=== PATIENT | female | born 1970 | race Caucasian/White ===

== ENCOUNTER 2020-03-28 05:42 | Inpatient (IN) | payer MEDICAID ==
[~2020-03-28] VITALS: Ht 180.3 cm; Wt 128.5 kg
[2020-03-28 07:18] LABS: Urine Bacteria NONE SEEN /hpf (None Seen); Urine Blood Negative /uL (Negative); Urine WBC 57 /hpf (0 - 5)
[2020-03-28] MEDS ORDERED: HYDROmorphone HCL 2 MG/ML VL IV ONE ×2 (07:45→10:30)
[2020-03-28] MEDS ORDERED: SODIUM CHLORIDE 0.9% 500 ML IVB ONE (07:45)
[2020-03-28] MEDS ORDERED: SODIUM CHLORIDE 0.9% 1,000 ML IV ONE (07:45)
[2020-03-28] MEDS ORDERED: METOCLOPRAMIDE HCL 5MG/ml INJ 2ml VIAL IV ONE (07:45)
[2020-03-28 08:05] LABS: Basophils # (auto) 0.1 10 ^3/uL (0-0.2); Basophils % (auto) 0.7 % (0.0-2.0); Eosinophils # (auto) 0.1 10 ^3/uL (0-0.8); Eosinophils % (auto) 0.8 % (0.0-7.0); Hematocrit 42.7 % (36.0-46.0); Hemoglobin 14.3 g/dL (12.2-16.2); Lymphocytes # (auto) 2.6 10 ^3/uL (0.4-5.4); Lymphocytes % (auto) 33.4 % (10.0-50.0); Mean Corpuscular Hgb Conc. 33.5 g/dL (32.0-36.0); Mean Corpuscular Volume 89.3 fL (80.0-100.0); Monocytes # (auto) 0.5 10 ^3/uL (0-1.3); Monocytes % (auto) 6.3 % (0.0-12.0); Neutrophils # (auto) 4.5 10 ^3/uL (1.6-8.6); Neutrophils % (auto) 58.8 % (37.0-80.0); Nucleated Red Blood Cells % 0.2 %; Platelet Count (auto) 225 10^3/uL (140-450); Red Blood Cells 4.78 10^6/uL (4.0-5.20); Red Cell Distribution Width 12.5 % (11.8-14.3); White Blood Cell 7.6 10^3/uL (4.4-10.8)
[2020-03-28 08:23] LABS: Albumin 3.7 g/dL (3.4-5.0); Amylase 59 U/L (25-115); Anion Gap 6 (5-15); Blood Urea Nitrogen 13 mg/dL (7-18); Calcium 9.3 mg/dL (8.5-10.1); Carbon Dioxide 26 mmol/L (21-32); Chloride 107 mmol/L (98-107); Glucose 104 mg/dL (74-106); Magnesium 2.2 mg/dL (1.6-2.6); Potassium 3.6 mmol/L (3.5-5.1); Sodium 139 mmol/L (136-145)
[2020-03-28 08:30] LABS: Alanine Aminotransferase 109 U/L (13-56); Alkaline Phosphatase 144 U/L (45-117); Aspartate Aminotransferase 70 U/L (15-37); BUN/Creatinine Ratio 16.7; Bilirubin, Total 0.6 mg/dL (0.2-1.0); GFR African American 101 mL/min; GFR Non-African American 83 mL/min; Lipase 158 U/L (73-393); Total Protein 7.7 g/dL (6.4-8.2)
[2020-03-28] MEDS ORDERED: cefTRIAXone 1GM/50ML D5W 50 ML IV ONE (08:45)
[2020-03-28] MEDS: SODIUM CHLORIDE 0.9% 1,000 ML IV SCH ×2 (11:12→22:26)
[2020-03-28] MEDS: metroNIDAZOLE 500MG/100ML 100 ML IV SCH ×2 (13:28→22:26)
[2020-03-28] MEDS: PROMETHAZINE HCL 25 MG/ML 1ML IV PRN ×2 (14:20→22:27)
[2020-03-28] MEDS ORDERED: LORazepam 2MG/ML-1ML VIAL IV PRN (14:30)
[2020-03-28] MEDS: MORPHINE SULF INJ 2 MG/ML SYRINGE 1ML IV PRN ×3 (14:33→22:27)
--- NOTE | 2020-03-28 15:10 | NUR ---
MS admit from ER DANIELLE ARCINIEGA admitted to tele/MS after SBAR received. Patient oriented to Taty Werner, primary RN, unit, room, bed, and unit policies regarding patient care and visiting hours. Patient weighed by bedscale and encouraged to call if they need something. All questions and concerns addressed, patient verbalized understanding.
[2020-03-28 15:27] VITALS: BP 146/75
[2020-03-28 17:28] VITALS: BP 149/74
--- NOTE | 2020-03-28 18:45 | NUR ---
Pain Patient c/o abdominal pain. Rates it 12/19. 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 Will continue to monitor.
[2020-03-28 22:00] VITALS: BP 155/71
[2020-03-28] MEDS: FAMOTIDINE 20 MG TAB PO SCH (22:26)
[2020-03-29] MEDS: MORPHINE SULF INJ 2 MG/ML SYRINGE 1ML IV PRN ×4 (02:55→21:36)
[2020-03-29 05:00] VITALS: BP 153/84
[2020-03-29] MEDS: metroNIDAZOLE 500MG/100ML 100 ML IV SCH ×3 (06:24→21:57)
[2020-03-29] MEDS: SODIUM CHLORIDE 0.9% 1,000 ML IV SCH (06:25)
[2020-03-29 06:50] LABS: Basophils # (auto) 0.1 10 ^3/uL (0-0.2); Basophils % (auto) 0.6 % (0.0-2.0); Eosinophils # (auto) 0 10 ^3/uL (0-0.8); Eosinophils % (auto) 0.2 % (0.0-7.0); Hemoglobin 15.4 g/dL (12.2-16.2); Lymphocytes # (auto) 2.9 10 ^3/uL (0.4-5.4); Lymphocytes % (auto) 27.6 % (10.0-50.0); Mean Corpuscular Hemoglobin 30.1 pg (28.0-32.0); Mean Corpuscular Hgb Conc. 32.9 g/dL (32.0-36.0); Mean Corpuscular Volume 91.7 fL (80.0-100.0); Monocytes # (auto) 0.7 10 ^3/uL (0-1.3); Monocytes % (auto) 6.2 % (0.0-12.0); Neutrophils % (auto) 65.4 % (37.0-80.0); Nucleated Red Blood Cells % 0.1 %; Platelet Count (auto) 203 10^3/uL (140-450); Red Blood Cells 5.13 10^6/uL (4.0-5.20); Red Cell Distribution Width 12.5 % (11.8-14.3); White Blood Cell 10.7 10^3/uL (4.4-10.8)
[2020-03-29 06:51] LABS: Albumin 3.5 g/dL (3.4-5.0); Calcium 8.9 mg/dL (8.5-10.1); Potassium 3.5 mmol/L (3.5-5.1)
[2020-03-29 06:56] LABS: BUN/Creatinine Ratio 12.7; Bilirubin, Total 0.6 mg/dL (0.2-1.0); Total Protein 7.8 g/dL (6.4-8.2)
[2020-03-29 08:00] VITALS: BP 147/83
[2020-03-29] MEDS: cefTRIAXone 1GM/50ML D5W 50 ML IV SCH (08:30)
[2020-03-29] MEDS: ENOXAPARIN SOD 40 MG/0.4 ML SYRINGE SC SCH (08:31)
[2020-03-29] MEDS: FAMOTIDINE 20 MG TAB PO SCH ×2 (08:31→21:57)
[2020-03-29] MEDS: PROMETHAZINE HCL 25 MG/ML 1ML IV PRN ×2 (08:46→21:58)
[2020-03-29 09:00] VITALS: BP 147/83
--- NOTE | 2020-03-29 11:35 | NUR ---
Dr. Cuong Gonzalez at bedside, updating patient on POC.
[2020-03-29] MEDS ORDERED: LORazepam 2MG/ML-1ML VIAL IV ONE (12:30)
[2020-03-29] MEDS: D5W/LACTATED RINGERS 1,000 ML IV SCH ×2 (12:50→21:45)
[2020-03-29 13:00] VITALS: BP 151/83
[2020-03-29] MEDS ORDERED: NICOTINE 21MG/24 HR TOPICAL PATCH TD ONE (13:15)
[2020-03-29 17:00] VITALS: BP 143/86
--- NOTE | 2020-03-29 18:30 | NUR ---
Patient c/o feeling anxious, will medicate per MD orders.
[2020-03-29] MEDS: LORazepam 2MG/ML-1ML VIAL IV PRN (18:34)
--- NOTE | 2020-03-29 19:37 | NUR ---
Closing Shift note Patient is comfortably resting in bed, breath sounds are even and unlabored, no s/s of distress/sob noted/stated. Bed at lowest locked position and call light within reach. Care endorsed to NOC RN.
--- NOTE | 2020-03-29 19:41 | NUR ---
COVID SWAB COLLECTED AT THIS TIME.
[2020-03-29 22:00] VITALS: BP 126/73
[2020-03-30] MEDS: LORazepam 2MG/ML-1ML VIAL IV PRN (00:54)
[2020-03-30 05:00] VITALS: BP 117/71
[2020-03-30] MEDS: metroNIDAZOLE 500MG/100ML 100 ML IV SCH ×3 (06:16→22:56)
[2020-03-30 07:23] LABS: INR 0.99 (0.9-1.15); Partial Thromboplastin Time 28.3 sec (23.0-31.2)
[2020-03-30] MEDS: D5W/LACTATED RINGERS 1,000 ML IV SCH (07:30)
[2020-03-30 07:34] LABS: Potassium 3.6 mmol/L (3.5-5.1)
[2020-03-30 07:59] LABS: Albumin 3.3 g/dL (3.4-5.0); BUN/Creatinine Ratio 17.2; Bilirubin, Total 0.7 mg/dL (0.2-1.0); Calcium 8.8 mg/dL (8.5-10.1); Total Protein 7.5 g/dL (6.4-8.2)
[2020-03-30 08:00] VITALS: BP 102/63
[2020-03-30 08:30] VITALS: BP 108/63
[2020-03-30] MEDS: NICOTINE 21MG/24 HR TOPICAL PATCH TD SCH (09:12)
[2020-03-30] MEDS: cefTRIAXone 1GM/50ML D5W 50 ML IV SCH (09:12)
--- NOTE | 2020-03-30 09:12 | NUR ---
Patient resting comfortably in bed with no distress noted. Scheduled IV abx given. Patch placed on right shoulder as well. Patient stable.
[2020-03-30] MEDS: ENOXAPARIN SOD 40 MG/0.4 ML SYRINGE SC SCH (09:13)
[2020-03-30] MEDS: MORPHINE SULF INJ 2 MG/ML SYRINGE 1ML IV PRN ×3 (10:46→22:56)
--- NOTE | 2020-03-30 10:46 | NUR ---
Patient medicated for 10/10 abdominal pain. Patient stable at this time.
--- NOTE | 2020-03-30 11:10 | NUR ---
Patient given ativan and then taken via wheelchair for MRCP.
[2020-03-30 12:00] VITALS: BP 106/71
--- NOTE | 2020-03-30 13:05 | NUR ---
Nutrition Assessment Notes please see attached link for complete assessment Est energy needs ABW 96 [id number] kcals (20-23 kcals/kgABW), Est protein needs: 96-105 gms/day (1.0-1.1 g/kgABW). Will continue to reassess prn Addendum: 03/30/20 at [address] Amended: Links added.
[2020-03-30] MEDS: FAMOTIDINE 20 MG TAB PO SCH ×2 (13:43→22:57)
--- NOTE | 2020-03-30 13:45 | NUR ---
Scheduled IV abx given per order. Patient resting comfortably in bed with no distress noted. Patient stable.
--- NOTE | 2020-03-30 16:00 | NUR ---
Second page to Dr. Gonzalez. Awaiting call back.
[2020-03-30 16:54] VITALS: BP 110/74
--- NOTE | 2020-03-30 17:24 | NUR ---
Patient medicated for 9/10 abdominal pain. Patient stable.
--- NOTE | 2020-03-30 18:15 | NUR ---
Patient stable with Dr. Gonzalez at bedside.
--- NOTE | 2020-03-30 19:50 | NUR ---
Opening Shift Note Assumed care of patient, awake and alert. No S/S of distress/SOB or pain. Instructed on POC and to call for assist PRN, will continue to monitor for changes Q1hr and PRN.bed in low position and call light within reach.
[2020-03-30 22:00] VITALS: BP 105/66
--- NOTE | 2020-03-30 22:19 | NUR ---
Patient signed consents per patient she was explained of the procedure by MD Gonzalez and patient verbalized understanding of the procedure for tomorrow. Patient refused to sign Anesthesia consent per patient she was not explained of the type of anesthesia that will be used.
--- NOTE | 2020-03-30 22:56 | NUR ---
IV insertion/IV removal IV DC'd with clean sterile technique, catheter fully intact. Pressure dressing applied to site. Patient tolerated well. IV access obtained, via clean sterile technique by inserting 24 gauge catheter at left Ac after 2 attempts. IV secured properly. No trauma to site. Patient tolerated well.
--- NOTE | 2020-03-30 23:01 | NUR ---
EKG done for preop .
--- NOTE | 2020-03-30 23:59 | NUR ---
patient educated to remain NPO for procedure scheduled patient verbalized understanding
[2020-03-31] MEDS: LORazepam 2MG/ML-1ML VIAL IV PRN (01:21)
[2020-03-31] MEDS: D5W/LACTATED RINGERS 1,000 ML IV SCH ×2 (03:45→15:50)
--- NOTE | 2020-03-31 04:47 | NUR ---
patient educated to remove glasses and dentures upon departure to surgery. patient verbalized understanding. patient linen change done. patient wiped herself down with chg wipes.
[2020-03-31 05:00] VITALS: BP 102/59
[2020-03-31] MEDS: metroNIDAZOLE 500MG/100ML 100 ML IV SCH ×3 (05:27→22:02)
--- NOTE | 2020-03-31 07:10 | NUR ---
report given to dayshift rn patient denies sob distress or pain. awake and alert. informed education rn was unsuccessful 3x for type and screen draw. per computer laboratory technician irina someone will come back to draw blood.
[2020-03-31 07:52] LABS: INR 0.97 (0.9-1.15); Partial Thromboplastin Time 23.2 sec (23.0-31.2)
[2020-03-31 08:00] VITALS: BP 96/60
[2020-03-31 08:30] VITALS: BP 96/60
[2020-03-31] MEDS: cefTRIAXone 1GM/50ML D5W 50 ML IV SCH (08:34)
--- NOTE | 2020-03-31 08:35 | NUR ---
Scheduled IV abx given per order. Patient resting quietly in bed at this time. Patient stable.
[2020-03-31] MEDS: NICOTINE 21MG/24 HR TOPICAL PATCH TD SCH (10:00)
[2020-03-31] MEDS: FAMOTIDINE 20 MG TAB PO SCH ×2 (10:00→22:02)
[2020-03-31] MEDS: ENOXAPARIN SOD 40 MG/0.4 ML SYRINGE SC SCH (10:00)
--- NOTE | 2020-03-31 10:00 | NUR ---
Patient resting in bed with eyes closed; no distress noted. Patient stable.
--- NOTE | 2020-03-31 10:50 | NUR ---
Patient taken to preop in stable condition.
[2020-03-31] MEDS ORDERED: BUPIVACAINE 0.25% INJ 50ML VIAL ONE (10:51)
[2020-03-31] MEDS ORDERED: ceFAZolin 1GM/50ML 50 ML IV ONE (11:27)
[2020-03-31] MEDS ORDERED: LIDOCAINE 1% HCL (LOCAL ANESTH.) INJ 20ML MDV ONE (11:40)
[2020-03-31] MEDS ORDERED: LIDOCAINE 1% (LOCAL ANESTH.) PF 5ml SDV ONE (12:25)
[2020-03-31] MEDS ORDERED: SUCCINYLCHOLINE CHLORIDE 20 MG/ML 10ML VIAL IV ONE (12:25)
[2020-03-31] MEDS ORDERED: METOCLOPRAMIDE HCL 5MG/ml INJ 2ml VIAL ONE (12:29)
[2020-03-31] MEDS ORDERED: MIDAZOLAM HCL 1MG/1ML-2 ML VIAL ONE ×2 (12:29→12:51)
[2020-03-31] MEDS ORDERED: ETOMIDATE (2MG/ML) 20ML VIAL IV ONE (12:33)
[2020-03-31] MEDS ORDERED: ROCURONIUM 10MG/ML 10ML VIAL IV ONE (12:33)
[2020-03-31] MEDS ORDERED: fentaNYL CITRATE 100 MCG/2 ML VL ONE (13:15)
[2020-03-31] MEDS ORDERED: NALOXONE HCL 0.4 MG/ML VIAL IV PRN (13:15)
[2020-03-31] MEDS ORDERED: ONDANSETRON HCL 4 MG/2 ML VIAL IV PRN (13:15)
[2020-03-31] MEDS ORDERED: HYDROmorphone HCL 2 MG/ML VL IV PRN (13:15)
[2020-03-31] MEDS: HYDROmorphone HCL 2 MG/ML VL IV PRN ×3 (15:15→20:20)
--- NOTE | 2020-03-31 15:50 | NUR ---
Patient returned to unit in stable condition with three abdominal incision sites, SHAYY drain, and a triple lumen central line in left femoral.
[2020-03-31] MEDS: MORPHINE SULF INJ 2 MG/ML SYRINGE 1ML IV PRN (16:23)
[2020-03-31 17:00] VITALS: BP 104/50
--- NOTE | 2020-03-31 18:35 | NUR ---
Patient eating dinner. Patient stable since transfer from OR.
--- NOTE | 2020-03-31 19:45 | NUR ---
RECEIVED PATIENT FROM DAY SHIFT RN. PATIENT RESTING IN BED. NO S/S OF DISTRESS NOTED. C/O PAIN @ 03/21. PATIENT STATED THAT MORPHINE DID NOT HELP FOR HER SX PAIN, WOULD LIKE TO HAVE DILAUDID. WILL PAGE MD LATER. INCISION SITES WITH SKIN GLUE C/D/I. SHAYY DRAIN DRAINING TO GRAVITY. ABD BINDER IN PLACE. INSTRUCTED PATIENT ON IS, PATIENT COULD DEMONSTRATE BACK. BED IN LOWEST LOCKED POSITION WITH SIDE RAILS UP X 2. CALL NIETO WITHIN REACH. ALARM ON. CONTINUE TO MONITOR FOR CHANGES Q1H AND PRN.
--- NOTE | 2020-03-31 20:00 | NUR ---
Called/paged Dr. WINTERS called re:PATIENT WOULD LIKE TO HAVE DILAUDID FOR HER SX PAIN INSTEAD OF MORPHINE, MD VELA ANSWERED THE PHONE, AND ORDER RECEIVED. DILAUDID 0.5 MG Q4HP, AND D/C MORPHINE 2MG Q4HP FOR SEVERE PAIN . Waiting for call back. Continue care.
--- NOTE | 2020-03-31 20:21 | NUR ---
MEDICATED PATIENT FOR PAIN @ 03/21. CONTINUE TO MONITOR.
[2020-03-31 21:30] VITALS: BP 114/64
[2020-04-01] MEDS: HYDROmorphone HCL 2 MG/ML VL IV PRN ×5 (00:18→21:38)
--- NOTE | 2020-04-01 00:24 | NUR ---
PATIENT C/O PAIN @ 02/19. MEDICATED PATIENT ORDERED. CONTINUE TO MONITOR.
[2020-04-01] MEDS: D5W/LACTATED RINGERS 1,000 ML IV SCH ×3 (00:43→21:51)
[2020-04-01] MEDS ORDERED: NICOTINE 21MG/24 HR TOPICAL PATCH TD ONE (00:45)
--- NOTE | 2020-04-01 00:45 | NUR ---
PATIENT GOT UP TO BEDSIDE COMMODE. PATIENT TOLERATED WELL. NO S/S OF DISTRESS NOTED. PAIN WHEN PATIENT'S MOVING. ENCOURAGED PATIENT TO TRY TO RELAX. CONTINUE TO MONITOR.
--- NOTE | 2020-04-01 01:01 | NUR ---
PATIENT SLEEPING. NO S/S OF DISTRESS AND PAIN NOTED. CONTINUE TO MONITOR.
[2020-04-01 04:30] VITALS: BP 102/63
--- NOTE | 2020-04-01 04:50 | NUR ---
PATIENT C/O PAIN @ 02/19. MEDICATED PATIENT ORDERED. CONTINUE TO MONITOR.
--- NOTE | 2020-04-01 05:15 | NUR ---
PATIENT SLEEPING. NO S/S OF PAIN NOTED. CONTINUE TO MONITOR.
[2020-04-01] MEDS: metroNIDAZOLE 500MG/100ML 100 ML IV SCH ×3 (05:56→21:37)
--- NOTE | 2020-04-01 05:56 | NUR ---
BLOOD CHRISTINA FROM CENTRAL LINE. PATIENT TOLERATED WELL. CONTINUE TO MONITOR.
[2020-04-01 06:41] LABS: Basophils # (auto) 0 10 ^3/uL (0-0.2); Basophils % (auto) 0.3 % (0.0-2.0); Eosinophils # (auto) 0.1 10 ^3/uL (0-0.8); Eosinophils % (auto) 1.6 % (0.0-7.0); Hematocrit 37.9 % (36.0-46.0); Hemoglobin 12.5 g/dL (12.2-16.2); Lymphocytes # (auto) 2.8 10 ^3/uL (0.4-5.4); Mean Corpuscular Hgb Conc. 32.9 g/dL (32.0-36.0); Mean Corpuscular Volume 91.1 fL (80.0-100.0); Monocytes # (auto) 0.7 10 ^3/uL (0-1.3); Monocytes % (auto) 8.5 % (0.0-12.0); Neutrophils # (auto) 4.5 10 ^3/uL (1.6-8.6); Neutrophils % (auto) 55.6 % (37.0-80.0); Nucleated Red Blood Cells % 0.1 %; Platelet Count (auto) 210 10^3/uL (140-450); Red Blood Cells 4.16 10^6/uL (4.0-5.20); Red Cell Distribution Width 12.5 % (11.8-14.3); White Blood Cell 8.1 10^3/uL (4.4-10.8)
[2020-04-01 06:51] LABS: Potassium 3.5 mmol/L (3.5-5.1)
[2020-04-01 06:58] LABS: Albumin 2.8 g/dL (3.4-5.0); Bilirubin, Total 0.3 mg/dL (0.2-1.0); Calcium 8.2 mg/dL (8.5-10.1); Total Protein 6.3 g/dL (6.4-8.2)
[2020-04-01 08:30] VITALS: BP 89/52
[2020-04-01] MEDS: cefTRIAXone 1GM/50ML D5W 50 ML IV SCH (08:43)
--- NOTE | 2020-04-01 08:45 | NUR ---
Patient used bedside commode and now sitting on side of bed. Rechecked blood pressure: 109/70, 92 hr. Patient requested medication for 03/21 abdominal pain. Will medicate. Scheduled IV abx given per order. Addendum: 04/01/20 at 0913 by HARSH STODDARD RN RN [phone]: Medicated for pain.
[2020-04-01 09:00] VITALS: BP 89/52
[2020-04-01] MEDS: NICOTINE 21MG/24 HR TOPICAL PATCH TD SCH (09:06)
[2020-04-01] MEDS: FAMOTIDINE 20 MG TAB PO SCH ×2 (09:06→21:37)
[2020-04-01] MEDS: ENOXAPARIN SOD 40 MG/0.4 ML SYRINGE SC SCH (09:11)
--- NOTE | 2020-04-01 09:12 | NUR ---
Scheduled medications given per order. Patient stable.
--- NOTE | 2020-04-01 10:45 | NUR ---
Patient ambulating with walker in hallway with PT.
[2020-04-01 13:00] VITALS: BP 109/69
--- NOTE | 2020-04-01 14:13 | NUR ---
Nutrition Followup Notes Pt wt is 123.0 kg Pt was sleeping when rounded this morning. Pt is with a Clear Liquid diet, appetite has been good aeb ave 80% PO intake over the last 2 days per RN doc. Est energy needs ABW 96 [id number] kcals (20-23 kcals/kgABW), Est protein needs: 96-105 gms/day (1.0-1.1 g/kgABW). Will continue to reassess prn LABS: CA 8.2 L, ALB 2.8 L GI: Pt had 1 BM on 04/01 per RN doc. BS: 20 low risk. Refer to wound assessment report for full details. PES: 1) Altered nutrition related lab values r.t current chronic medical condition aeb mild hypoalb 2) Decreased nutrient needs r/t adiposity aeb pt`s high BMI of 38.0 kgm2 Comments 1) Advance diet as medically feasible 2) Refer to OPD dietitian on DC 3) Continue current plan of care
--- NOTE | 2020-04-01 14:35 | NUR ---
Scheduled IV abx given per order. Patient resting comfortably in bed with no distress noted. Patient stable.
--- NOTE | 2020-04-01 14:54 | NUR ---
Patient stable with Dr. Charles at bedside.
[2020-04-01 16:50] VITALS: BP 99/65
--- NOTE | 2020-04-01 17:32 | NUR ---
Patient medicated for 10/10 abdominal pain. Patient sitting on side of bed; stable.
[2020-04-01] MEDS: MORPHINE SULF INJ 2 MG/ML SYRINGE 1ML IV PRN (19:36)
--- NOTE | 2020-04-01 19:37 | NUR ---
Patient medicated for 6/10 abdominal pain. Patient stable throughout shift.
[2020-04-01 22:00] VITALS: BP 119/71
[2020-04-02] MEDS: LORazepam 2MG/ML-1ML VIAL IV PRN (00:57)
[2020-04-02] MEDS: MORPHINE SULF INJ 2 MG/ML SYRINGE 1ML IV PRN ×3 (01:06→12:05)
[2020-04-02 05:00] VITALS: BP 103/63
[2020-04-02] MEDS: D5W/LACTATED RINGERS 1,000 ML IV SCH ×2 (06:02→15:45)
[2020-04-02] MEDS: metroNIDAZOLE 500MG/100ML 100 ML IV SCH ×2 (06:32→14:00)
--- NOTE | 2020-04-02 08:00 | NUR ---
REGARDING AMBULATION AND INCENTIVE SPIROMETER. PATIENT ENCOURAGED TO AMBULATE AND USE INCENTIVE SPIROMETER. PATIENT AMBULATED TO BATHROOM AND BACK WITH STEADY GAIT. PROPER RETURN DEMONSTRATION WITH INCENTIVE SPIROMETER.
[2020-04-02] MEDS: cefTRIAXone 1GM/50ML D5W 50 ML IV SCH (08:31)
[2020-04-02] MEDS: FAMOTIDINE 20 MG TAB PO SCH (08:31)
[2020-04-02] MEDS: ENOXAPARIN SOD 40 MG/0.4 ML SYRINGE SC SCH (08:31)
[2020-04-02] MEDS: NICOTINE 21MG/24 HR TOPICAL PATCH TD SCH (08:31)
[2020-04-02] MEDS: HYDROmorphone HCL 2 MG/ML VL IV PRN (08:32)
[2020-04-02 09:00] VITALS: BP 116/74
--- NOTE | 2020-04-02 11:41 | NUR ---
D/C Planning Per social service consult for home health SHAYY skinner. Faxed clinical information to [facility]. Per Jessica with [facility] patient has been accepted and service to start within 24-48hrs upon d/c day. Obtain authorization from [facility] [id number].
[2020-04-02 13:00] VITALS: BP 112/69
[2020-04-02] MEDS ORDERED: NALO4SPR2 (15:20)
[2020-04-02] MEDS ORDERED: HYDR-4833 PO (15:20)
[2020-04-02] MEDS ORDERED: DOXY-346 PO (15:20)
--- NOTE | 2020-04-02 15:24 | NUR ---
Richard SANDOVAL AT BEDSIDE. INFORMED OF PATIENTS OVERALL STATUS INCLUDING VITALS, PAIN LEVEL, SHAYY DRAIN, AND PATIENTS LACK OF BM BUT REPORT OF GAS. PER Richard SANDOVAL OK TO DC AND FOLLOW UP IN 1 WEEK.
--- NOTE | 2020-04-02 16:10 | NUR ---
The 49-year-old female that is alert and oriented, patient cognitive abilities are intact. Patient can do all ADLs independently. Patient is employed by [employer]. Patient stated that she lives with her and son. Patient stated that post surgery that she is receptive to use ambulatory equipment. Patient stated that her is her support system. Patient states that her can provide transportation for post discharge. Discharge planning: SW will provide home health equipment for post discharge. Addendum: 04/02/20 at 1611 by SAGRARIO CLAROS SS Amended: Links added.
[2020-04-02 17:00] VITALS: BP 149/85
--- NOTE | 2020-04-02 17:40 | NUR ---
Discharge instructions given as ordered. Encourage to follow up with PMD as instructed. INSTRUCTED TO FOLLOW UP WITH PCP AND Richard SANDOVAL WITHIN 1 WEEK, INSTRUCTED ON HOW TO EMPTY SHAYY DRAIN. INSTRUCTED ON NEW MEDICATIONS. INSTRUCTED ON HOME HEALTH. All questions and concerns addressed. Patient verbalized understanding. Medication reconciliation form completed and copy given to patient. TLC removed with catheter intact, pressure dressing applied. Patient taken to vehicle via wheelchair with all personal belongings, accompanied by staff and family member. No distress noted at time of departure.
== END 2020-04-02 17:35 | disposition home or self-care (01) | DRG 263 ==
LOC: EDBD 05:42 → ER 05:42 → OVERFLOW 05:43 → WEST WING 15:40
PROVIDERS: ADMIT Internal Medicine; ATTEND Hospitalist
PROC: 06HM33Z Insertion of Infusion Device into Right Femoral Vein, Percutaneous Approach (ICD-10-PCS; 2020-03-31)
PROC: 0FT44ZZ Resection of Gallbladder, Percutaneous Endoscopic Approach (ICD-10-PCS; principal; 2020-03-31 12:28)
DX: K80.00 Calculus of gallbladder with acute cholecystitis without obstruction (principal); E66.9 Obesity, unspecified; Z68.39 Body mass index [BMI] 39.0-39.9, adult; Z88.5 Allergy status to narcotic agent; F17.210 Nicotine dependence, cigarettes, uncomplicated; N39.0 Urinary tract infection, site not specified; Z20.828 Contact with and (suspected) exposure to other viral communicable diseases
CPT/HCPCS: 36415; 71046; 74176; 74181; 76705; 80053; 81001; 82150; 83690; 83735; 84484; 84702; 85025; 85610; 85730; 86850; 86900; 86901; 87086; 87426; 93005; 93306; 96361; 96365; 96375; 97530; G0378; J0330; J0690; J0696; J2001; J2250; J3490

== ENCOUNTER 2024-12-13 08:58 | Emergency (ER) | payer MEDICAID ==
[~2024-12-13] VITALS: Ht 182.9 cm; Wt 121.7 kg
[~2024-12-13 08:58] MED LIST: DOXY-346 PO; HYDR-4833 PO; NALO4SPR2
--- NOTE | 2024-12-13 09:33 | ED.PDOC ---
Laurie. trauma (HPI) HPI Comments A 54 YEAR-OLD FEMALE PRESENTS TO THE ED WITH A CHIEF COMPLAINT RIGHT WRIST PAIN TO RIGHT HAND PAIN OF X1 DAY AGO S/P TRAUMA. PATIENT REPORTS THAT LAST NIGHT SHE FELL ON HER RIGHT HAND ONTO CONCRETE. PATIENT STATES HAVING PAIN SINCE, BUT OTHERWISE DENIES FURTHER ASSOCIATED SYMPTOMS OF N/V, MIGRAINE, DIZZINESS, OR FEVER. PATIENT IS ALERT, ORIENTED X 4, AND HAS STEADY GAIT. Chief Complaint: Upper Extremity Time Seen by MD: 09:24 Primary Care Provider: PRIYANKAIES Reviewed notes: Nurses Notes, Medications, Allergies Allergies: Coded Allergies: Ibuprofen (Verified Allergy, Mild, 08/30/10) Tramadol (Verified Adverse Reaction, Unknown, 03/28/20) Home Meds Active Scripts Naloxone HCl (Narcan) 4 Mg/0.1 Ml Spr, 4 MG NA Q6HPRN PRN, #1 SPRAY Prov:WAQAR DO MD 04/02/20 Hydrocodone-Acetaminophen ([place] 5/325MG) 1 Tab Tb, 1 TAB PO TID PRN, #30 TAB Prov:WAQAR DO MD 04/02/20 Doxycycline (Monohydrate) (Doxycycline) 100 Mg Tab, 100 MG PO BID, #14 TAB Prov:WAQAR DO MD 04/02/20 Information Source: Patient Mode of Arrival: Ambulatory Severity: Moderate Timing: Days (X1) Duration: Since onset, Days Prehospital treatment: None Location: (R) Hand, (R) Wrist Location of laceration: None Mechanism: Fall Associated signs and symtoms: None Past Medical History PAST MEDICAL HISTORY: Denies Surgical History: Denies all surgeries 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 Family History Family History: Reviewed,noncontributory to illness Social History Smoker: Cigarettes Alcohol: Denies ETOH Use Drugs: Denies Drug Use Lives In: Home Constitutional: denies: chills, diaphoresis, fatigue, fever, malaise, sweats, weakness, others EENTM: denies: blurred vision, double vision, ear bleeding, ear discharge, ear drainage, ear pain, ear ringing, eye pain, eye redness, hearing loss, mouth pain, mouth swelling, nasal discharge, nose bleeding, nose congestion, nose pain, photophobia, tearing, throat pain, throat swelling, voice changes, others Respiratory: denies: cough, hemoptysis, orthopnea, SOB at rest, shortness of breath, SOB with excertion, stridor, wheezing, others Cardiovascular: denies: chest pain, dizzy spells, diaphoresis, Dyspnea on exertion, edema, irregular heart beat, left arm pain, lightheadedness, palpitations, PND, syncope, others Gastrointestinal: denies: abdomen distended, abdominal pain, blood streaked bowels, constipated, diarrhea, dysphagia, difficulty swallowing, hematemesis, melena, nausea, poor appetite, poor fluid intake, rectal bleeding, rectal pain, vomiting, others Genitourinary: denies: abnormal vagina bleeding, burning, dyspareunia, dysuria, flank pain, frequency, hematuria, incontinence, pain, , vagina discharge, urgency, others Neurological: denies: dizziness, fainting, headache, left sided numbness, left sided weakness, numbness, paresthesia, pre-existing deficit, right sided num bness, right sided weakness, seizure, speech problems, tingling, tremors, weakness, others Musculoskeletal: reports: joint pain, joint swelling, others (RIGHT FOREARM SWELLING AND PAIN ); denies: back pain, gout, muscle pain, muscle stiffness, neck pain Integumetry: denies: bruises, change in color, change in hair/nails, dryness, laceration, lesions, lumps, rash, wounds, others Allergic/Immunocompromised: denies: Difficulty Healing, Frequent Infections, Hives, Itching, others Hematologic/Lymphatic: denies: anemia, blood clots, easy bleeding, easy bruising, swollen glands, others Endocrine: denies: excessive hunger, excessive sweating, excessive thirst, excessive urination, flushing, intolerance to cold, intolerance to heat, unexplained weight gain, unexplained weight loss, others Psychiatric: denies: anxiety, bipolar disorder, depression, hopeless, panic disorder, schizophrenia, sleepless, suicidal, others All Other Systems: Reviewed and Negative Physical Exam General Appearance: No Apparent Distress, Normal HEENT: Normal ENT Inspection, PERRL/EOMI, Pharynx Normal, TMs Normal Neck: Full Range of Motion, Non-Tender, Normal, Normal Inspection Respiratory: Chest Non-Tender, Lungs Clear, No Accessory Muscle Use, No Respiratory Distress, Normal Breath Sounds Cardiovascular: No Edema, No JVD, No Murmur, No Gallop, Normal Peripheral Pulses, Regular Rate/Rhythm Breast Exam: Deferred Gastrointestinal: No Organomegaly, Non Tender, No Pulsatile Mass, Normal Bowel Sounds, Soft Genitalia: Deferred Pelvic: Deferred Rectal: Deferred Extremities: Decreased range of motion, No calf tenderness, Normal capillary refill, No pedal edema, Tender (TENDERNESS AND MILD SWELLING ON RIGHT LATERAL HAND AND WRIST, NO DEFORMITY. ) Musculoskeletal : Apperance: Normal Neurologic: Alert, site inspector II-XII nml as Tested, No Motor Deficits, Normal Affect, Normal Mood, No Sensory Deficits Cerebellar Function: Normal Reflexes: Normal Skin: Dry, Normal Color, Warm Peripheral Pulses: 2+ carotid (R), 2+ carotid (L), 2+ Radial (R), 2+ Radial (L) Lymphatic: No Adenopathy Was a procedure done? Was a procedure done?: No Differential Diagnosis Multiple Trauma: Fractures, Abrasions, Contusion, Laceration X-Ray, Labs, Meds, VS Vital Signs Date Time Temp Pulse Resp B/P (MAP) Pulse Ox O2 Delivery O2 Flow Rate FiO2 12/13/24 09:07 98.1 81 18 145/94 (111) 97 98.1 EXAM: XR Right Hand Complete, 3 or More Views CLINICAL INDICATION: Pain TECHNIQUE: Frontal, lateral and oblique views of the right hand. COMPARISON: No relevant prior studies available. FINDINGS: BONES/JOINTS: Cortical irregularity at the base of the fifth metacarpal. Nondisplaced fracture. No dislocation. SOFT TISSUES: Soft tissue swelling. No radiopaque foreign body. IMPRESSION: Cortical irregularity at the base of the fifth metacarpal. Nondisplaced fracture. X-Ray, Labs, Meds, VS Comment EXTERNAL MEDICAL RECORDS: NONE INDEPENDENT HISTORIANS: NONE SOCIAL DETERMINANTS OF HEALTH: NONE LABS ORDERED: NONE REVIEWED AND INTERPRETED RESULTS: NONE IMAGING ORDERED: RIGHT HAND XRAY RESULTS: PATIENT HAS A CORTICAL IRREGULARITY AT THE BASE OF THE FIFTH METACARPAL. NONDISPLACED FRACTURE. TREATMENTS ORDERED: NONE PATIENT'S CASE AND RESULTS HAVE BEEN DISCUSSED WITH THE ED ATTENDING PHYSICIAN, DR. MATA, AND THEY AGREE WITH MY PLAN OF CARE. I HAVE DISCUSSED IMAGING AND LAB RESULTS WITH THE PATIENT AND HAVE INSTRUCTED THE PATIENT TO FOLLOW UP WITH THEIR PCP IN 1-2 DAYS. THE PATIENT FULLY UNDERSTA NDS THEIR RESULTS AND ARE AWARE THEY NEED TO FOLLOW UP WITH THEIR PCP FOR FURTHER EVALUATION IF THEIR SYMPTOMS PERSIST. Images Reviewed?: Images reviewed and evaluated by me Time of 1ST Reevaluation: 10:14 Reevaluation 1ST: Improved Patient Education/Counseling: Diagnosis, Treatment, Need For Follow Up Family Education/Counseling: Diagnosis, Treatment, Need For Follow Up Medical Screening: No EMC Exist At This Time Departure 1 Departure Time of Disposition: 10:14 Impression: Primary Impression: Closed fracture of 5th metacarpal Qualified Codes: S62.346A - Nondisplaced fracture of base of fifth metacarpal bone, right hand, initial encounter for closed fracture Disposition: HOME / SELF CARE / HOMELESS Condition: Stable Additional Instructions: FOLLOW-UP WITH PCP IN 1 TO 2 DAYS. TAKE MEDICATIONS PRESCRIBED. RETURN TO E D FOR ANY NEW OR WORSENING SYMPTOMS. e-Prescriptions Acetaminophen (Tylenol Extra Strength Fo) 500 Mg Tab 1000 MG PO BID, #30 TAB Prov: PHOEBE MEIER 12/13/24 Discharged With: Self Critical Care Note Critical Care Time?: No Stability Stability form required: No Heart Score Heart Score: Heart Score Response (Comments) Value History N/A 0 EKG N/A 0 Age N/A 0 Risk Factors N/A 0 Troponin N/A 0 Total 0 I personally scribed for PHOEBE MEIER ([email or web address]) on 12/13/24 at 09:33. Electronically submitted by Shasta Higuera [email or web address]). I personally scribed for PHOEBE MEIER ([email or web address]) on 12/13/24 at 10:07. Electronically submitted by Shasta Higuera [email or web address]). I personally scribed for PHOEBE MEIER ([email or web address]) on 12/13/24 at 10:09. Electronically submitted by Shasta Higuera [email or web address]). PHOEBE MEIER Dec 13, 2024 09:33
--- NOTE | 2024-12-13 09:53 | DVH ---
EXAM: XY R WRIST 3+ VIEW XRAY HISTORY: FALL COMPARISON: None TECHNIQUE: 3 views of the right wrist were performed. FINDINGS/IMPRESSION: 1. Question of ill-defined mildly displaced fracture of the base of the 5th metacarpal bone. Correla te with focal tenderness. 2. No other fractures are identified about the right wrist.
--- NOTE | 2024-12-13 09:55 | DVH ---
EXAM: XR Right Hand Complete, 3 or More Views CLINICAL INDICATION: Pain TECHNIQUE: Frontal, lateral and oblique views of the right hand. COMPARISON: No relevant prior studies available. FINDINGS: BONES/JOINTS: Cortical irregularity at the base of the fifth metacarpal. Nondisplaced fracture. No dislocation. SOFT TISSUES: Soft tissue swelling. No radiopaque foreign body. IMPRESSION: Cortical irregularity at the base of the fifth metacarpal. Nondisplaced fracture.
[2024-12-13] MEDS ORDERED: ACET-1304 PO (10:12)
[2024-12-13 10:25] VITALS: BP 145/89; PULSE 74; RESP 16; TEMP 97.8; O2SAT 96
== END 2024-12-13 10:39 | disposition home or self-care (01) ==
LOC: ER 08:58
DX: S62.346A Nondisplaced fracture of base of fifth metacarpal bone, right hand, initial encounter for closed fracture (principal); F17.210 Nicotine dependence, cigarettes, uncomplicated; Z88.5 Allergy status to narcotic agent; Z88.6 Allergy status to analgesic agent; Z79.899 Other long term (current) drug therapy; W50.0XXA Accidental hit or strike by another person, initial encounter; Y93.89 Activity, other specified; Y92.89 Other specified places as the place of occurrence of the external cause; Y99.8 Other external cause status
CPT/HCPCS: 29125; 73110; 73130

== ENCOUNTER 2025-04-21 19:25 | Emergency (ER) | payer MEDICAID ==
[~2025-04-21] VITALS: Ht 182.9 cm; Wt 133.7 kg
[~2025-04-21 19:25] MED LIST changes: +ACET-1304 PO
--- NOTE | 2025-04-21 19:47 | ED.PDOC ---
History of Present Illness HPI Comments 54-year-old female who came to ER for back pains. Patient accidentally tripped over her dog 6 days ago and landed badly on her buttocks. Since then patient has been having lower back pain, weakness over her right lower extremity, and urinary and bowel incontinence. Patient was seen by her primary care provider, was sent to the emergency room to rule out cauda equina REVIEW OF SYSTEMS: General: No fever, no chills, or fatigue HEENT: No sore throat, no earache, no congestion, no neck pain. Cardiac: No chest pain. No palpitations. Lungs: No shortness of breath, no cough. GI: No nausea, no vomiting, no diarrhea, no constipation, no abdominal pain (+) incontinence : No dysuria, frequency, or urgency. No hematuria. (+) incontinence Musculoskeletal: No joint pain , no joint swelling, no extremity edema. (+) back pain Skin: No rash, no itching. Neuro: No headache, no dizziness, no weakness EXAM: General: Awake, alert and oriented. No acute distress. Skin: Skin in warm, dry and intact. Appropriate color for ethnicity. HEENT: The head is normocephalic and atraumatic. Conjunctivae are clear without exudates or hemorrhage. Sclera is non-icteric. EOM are intact. No signs of nystagmus. Eyelids are normal in appearance without swelling or lesions. Oral mucosa is pink and moist Neck: The neck is supple with normal range of motion. No JVD. Cardiac: Heart rate and rhythm are normal. No murmurs, gallops, or rubs are auscultated. Respiratory: No signs of respiratory distress. Lung sounds are clear in all lobes bilaterally without rales, rhonchi, or wheezes. Abdominal: Abdomen is soft, non-tender without distention. Bowel sounds are present and normoactive in all four quadrants. Extremities: Upper and lower extremities are atraumatic in appearance without deformity or edema. Back: Positive lumbar spinal tenderness Neurological: The patient is awake, alert and oriented to person, place, and time with normal speech. Speech is clear. There is no facial asymmetry. Diminished sensation to right lower extremity compared to right. Strength of dorsiflexion intact in bilateral lower extremities. Psychiatric: Appropriate mood and affect. Good judgement and insight Chief Complaint: Back Pain Time Seen by MD: 19:46 Primary Care Provider: DENIES Reviewed Notes: Nurses Notes Allergies: Coded Allergies: Tramadol (Verified Adverse Reaction, Unknown, 03/28/20) Home Meds Active Scripts Acetaminophen (Tylenol Extra Strength Fo) 500 Mg Tab, 1000 MG PO BID, #30 TAB Prov:PHOEBE MEIER 12/13/24 Naloxone HCl (Narcan) 4 Mg/0.1 Ml Spr, 4 MG NA Q6HPRN PRN, #1 SPRAY Prov:WAQAR DO MD 04/02/20 Hydrocodone-Acetaminophen ([place] 5/325MG) 1 Tab Tb, 1 TAB PO TID PRN, #30 TAB Prov:WAQAR DO MD 04/02/20 Doxycycline (Monohydrate) (Doxycycline) 100 Mg Tab, 100 MG PO BID, #14 TAB Prov:WAQAR DO MD 04/02/20 Information Source: Patient Mode of Arrival: Ambulatory Past Medical History PAST MEDICAL HISTORY: Liver Surgical History: Denies all surgeries ORAL AND MAXILLOFACIAL PATHOLOGIST History: No Pertinent ORAL AND MAXILLOFACIAL PATHOLOGIST History Family History Family History: Reviewed,noncontributory to illness Social History Smoker: Non-Smoker Alcohol: Denies ETOH Use Drugs: Denies Drug Use Lives In: Home Was a procedure done? Was a procedure done?: No Differential Dx Considerations may include: Musculoskeletal pain, lower back pain, cauda equina, spinal stenosis, urinary tract infection, spinal epidural abscess, other X-Ray, Labs, Meds, VS Vital Signs Date Time Temp Pulse Resp B/P (MAP) Pulse Ox O2 Delivery O2 Flow Rate FiO2 04/21/25 19:27 97.7 93 17 168/91 94 97.7 Lab Test 04/21/25 20:51 Range/Units White Blood Count 6.8 4.4-10.8 10^3/uL Red Blood Count 5.26 H 4.0-5.20 10^6/uL Hemoglobin 16.6 H 12.2-16.2 g/dL Hematocrit 50.4 H 36.0-46.0 % Mean Corpuscular Volume 95.8 80.0-100.0 fL Mean Corpuscular Hemoglobin 31.6 28.0-32.0 pg Mean Corpuscular Hemoglobin Concent 33.0 32.0-36.0 g/dL Red Cell Distribution Width 13.1 11.8-14.3 % Platelet Count 197 140-450 10^3/uL Mean Platelet Volume 7.8 6.9-10.8 fL Neutrophils (%) (Auto) 46.9 37.0-80.0 % Lymphocytes (%) (Auto) 45.0 10.0-50.0 % Monocytes (%) (Auto) 6.4 0.0-12.0 % Eosinophils (%) (Auto) 1.2 0.0-7.0 % Basophils (%) (Auto) 0.5 0.0-2.0 % Neutrophils # (Auto) 3.2 1.6-8.6 10 ^3/uL Lymphocytes # (Auto) 3.0 0.4-5.4 10 ^3/uL Monocytes # (Auto) 0.4 0-1.3 10 ^3/uL Eosinophils # (Auto) 0.1 0-0.8 10 ^3/uL Basophils # (Auto) 0 0-0.2 10 ^3/uL Nucleated Red Blood Cells 0.1 % Sodium Level 142 136-145 mmol/L Potassium Level 5.0 3.5-5.1 mmol/L Chloride Level 108 H 98-107 mmol/L Carbon Dioxide Level 23 20-31 mmol/L Anion Gap 11 5-15 Blood Urea Nitrogen 16 9-23 mg/dL Creatinine 0.72 0.550-1.02 mg/dL Glomerular Filtration Rate Calc 99 >90 mL/min BUN/Creatinine Ratio 22.2 H 10.0-20.0 Serum Glucose 98 74-106 mg/dL Calcium Level 9.8 8.7-10.4 mg/dL EXAM: CT LS SPINE WO CONTRAST INDICATION: Severe lower back pain, urinary incontinence, rule out cauda TECHNIQUE: Axial images of the lumbar spine have been obtained along with coronal and sagittal reformatted images. CT scans at this facility use dose modulation, iterative reconstruction, and/or weight based dosing when appropriate to reduce radiation dose to as low as reasonably achievable. Dose: CTDIvol: 38.95 mGy, DLP: 1389.24 mGy.cm COMPARISON: None FINDINGS: There is no acute displaced fracture. There are mild degenerative changes of the lumbar spine characterized by endplate osteophytosis and intervertebral disc space narrowing. There is vacuum disc phenomenon at multiple levels. The paraspinal soft tissues are unremarkable. There is an 8 mm nonobstructing right renal calculus. LEVEL BY LEVEL DISCUSSION BELOW: T12-L1: Unremarkable. L1-L2: Unremarkable. L2-L3: Unremarkable. L3-L4: A broad-based disc protrusion effaces the thecal sac and contributes to at least mild spinal stenosis. There is facet arthropathy. L4-L5: A broad-based disc protrusion effaces the thecal sac. There is facet arthropathy. There is at least mild bilateral neural foraminal narrowing. L5-S1: A central disc protrusion effaces the thecal sac. There is facet arthropathy. IMPRESSION: 1. No acute displaced fracture. 2. Degenerative changes of the lumbar spine as detailed. 3. If clinical symptoms persist, MRI may be beneficial in further assessment. Time of 1ST Reevaluation: 19:43 Reevaluation 1ST: Unchanged Patient Education/Counseling: Need For Follow Up Family Education/Counseling: No Family Present SEPSIS Sepsis Screen Date sepsis recognized/suspect: Apr 21, 2025 Time Sepsis recognized/suspect: 1926 Recent Procedure: No On Antibiotic Therapy: No Respiratory Rate >20: No Heart Rate >90: Yes Temp<36 C (96.8 F) or >38.3 C: No SBP <90 or MAP <65 mmHG: No New Acute Mental Status Change: No Is the patient on CPAP, BIPAP,: No Physician Orders Urinalysis (04/21/25 19:47) Ls Spine Wo Contrast (04/21/25 19:47) Assess Postvoiding Residual (04/21/25 19:53) Vital Signs Date Time Temp Pulse Resp B/P (MAP) Pulse Ox O2 Delivery O2 Flow Rate FiO2 04/21/25 19:27 97.7 93 17 168/91 94 97.7 Laboratory Tests Test 04/21/25 20:51 White Blood Count 6.8 10^3/uL (4.4-10.8) Departure 1 Departure Time of Disposition: 22:11 Impression: Primary Impression: Suspected cauda equina syndrome Disposition: 02 [facility]ORT TERM [facility]OSPITAL Condition: Stable Comments 54-year-old female with with suspected cauda equina syndrome. Case discussed with Dr. Ibarra at [facility]. Patient is accepted for transfer for emergent MRI. Critical Care Note Critical Care Time?: No Stability Stability form required: No Heart Score Heart Score: Heart Score Response (Comments) Value History N/A 0 EKG N/A 0 Age N/A 0 Risk Factors N/A 0 Troponin N/A 0 Total 0 I personally scribed for CEZAR BAGLEY MD ([email or web address]) on 04/21/25 at 19:47. Electronically submitted by Rasheed Sanchez ([email or web address]). I personally scribed for CEZAR BAGLEY MD ([email or web address]) on 04/21/25 at 21:11. Electronically submitted by Rasheed Sanchez ([facility]). CEZAR BAGLEY MD Apr 21, 2025 19:47
--- NOTE | 2025-04-21 20:34 | DVH ---
EXAM: CT LS SPINE WO CONTRAST INDICATION: Severe lower back pain, urinary incontinence, rule out cauda TECHNIQUE: Axial images of the lumbar spine have been obtained along with coronal and sagittal reformatted images. CT scans at this facility use dose modulation, iterative reconstruction, and/or weight based dosing when appropriate to reduce radiation dose to as low as reasonably achievable. Dose: CTDIvol: 38.95 mGy, DLP: 1389.24 mGy.cm COMPARISON: None FINDINGS: There is no acute displaced fracture. There are mild degenerative changes of the lumbar spine characterized by endplate osteophytosis and intervertebral disc space narrowing. There is vacuum disc phenomenon at multiple levels. The paraspinal soft tissues are unremarkable. There is an 8 mm nonobstructing right renal calculus. LEVEL BY LEVEL DISCUSSION BELOW: T12-L1: Unremarkable. L1-L2: Unremarkable. L2-L3: Unremarkable. L3-L4: A broad-based disc protrusion effaces the thecal sac and contributes to at least mild spinal stenosis. There is facet arthropathy. L4-L5: A broad-based disc protrusion effaces the thecal sac. There is facet arthropathy. There is at least mild bilateral neural foraminal narrowing. L5-S1: A central disc protrusion effaces the thecal sac. There is facet arthropathy. IMPRESSION: 1. No acute displaced fracture. 2. Degenerative changes of the lumbar spine as detailed. 3. If clinical symptoms persist, MRI may be beneficial in further assessment.
[2025-04-21 21:41] LABS: Sodium 142 mmol/L (136-145)
[2025-04-21 21:42] LABS: Anion Gap 11 (5-15); Calcium 9.8 mg/dL (8.7-10.4); Carbon Dioxide 23 mmol/L (20-31)
[2025-04-21 21:44] LABS: Hematocrit 50.4 % (36.0-46.0); Hemoglobin 16.6 g/dL (12.2-16.2); Mean Corpuscular Hemoglobin 31.6 pg (28.0-32.0); Mean Corpuscular Volume 95.8 fL (80.0-100.0); Nucleated Red Blood Cells % 0.1 %
[2025-04-21 21:47] LABS: Glucose 98 mg/dL (74-106)
[2025-04-21 21:48] LABS: BUN/Creatinine Ratio 22.2 (10.0-20.0); Blood Urea Nitrogen 16 mg/dL (9-23); Chloride 108 mmol/L (98-107); Potassium 5.0 mmol/L (3.5-5.1)
[2025-04-21 23:54] VITALS: BP 149/106; PULSE 88; RESP 17; TEMP 97.9; O2SAT 98
== END 2025-04-21 20:44 | disposition short-term general hospital (02) ==
LOC: ER 19:25
DX: G83.4 Cauda equina syndrome (principal); Z79.899 Other long term (current) drug therapy; Z88.5 Allergy status to narcotic agent
CPT/HCPCS: 36415; 72131; 80048; 85025